=== PATIENT | male | born 1975 | race Hispanic/Latino ===

== ENCOUNTER 2024-07-09 05:07 | Emergency (ER) | payer BC ==
[~2024-07-09] VITALS: Ht 167.6 cm; Wt 81.6 kg
[2024-07-09 05:09] VITALS: TEMP 98.5
[2024-07-09] MEDS: SODIUM CHLORIDE 0.9% 1000ML 1,000 ML IV STA (05:25)
[2024-07-09 05:30] LABS: BASOPHILS % 0.5 % (0.0-1.0); EOSINOPHILS # (AUTO) 0.4 (0.0-0.4); EOSINOPHILS % 4.5 % (0.0-6.0); HEMATOCRIT 43.5 % (38.2-49.6); LYMPHOCYTES # (AUTO) 3.8 (1.0-3.2); MEAN CORPUSCULAR HEMOGLOBIN 31.5 pg (28-32); MEAN CORPUSCULAR HGB CONC 34.5 g/dL (31-35); MEAN CORPUSCULAR VOLUME 91.4 fL (81-99); MONOCYTES # (AUTO) 0.7 (0.2-0.8); MONOCYTES % 8.4 % (4.4-11.3); NEUTROPHILS # (AUTO) 3.2 (2.1-6.9); NEUTROPHILS % 39.5 % (38.7-80.0); PLATELET COUNT 186 x10e3/uL (140-360); RED BLOOD COUNT 4.76 x10e6/uL (4.3-5.7); RED CELL DISTRIBUTION WIDTH 12.5 % (11.7-14.4); WHITE BLOOD COUNT 8.05 x10e3/uL (4.8-10.8)
[2024-07-09] MEDS ORDERED: IOPAMIDOL 370 MG/ML 100 ML INFUS..BTL INJ ONE (05:32)
[2024-07-09] MEDS: FAMOTIDINE 20 MG/2 ML VIAL IV STA (05:46)
[2024-07-09 05:58] LABS: CREATINE KINASE 84 IU/L (30-200)
[2024-07-09 06:10] LABS: TROPONIN I < 0.001 ng/mL (0-0.300)
[2024-07-09 06:22] LABS: ALBUMIN 4.4 g/dL (3.5-5.0); ALBUMIN/GLOBULIN RATIO 1.3 (0.8-2.0); BILIRUBIN,TOTAL 0.6 mg/dL (0.2-1.2); CALCIUM 9.3 mg/dL (8.4-10.2); CREATININE, SERUM 0.93 mg/dL (0.72-1.25); TOTAL PROTEIN 7.7 g/dL (6.5-8.1)
[2024-07-09] MEDS: MAGNESIUM/ALUMINUM/SIMETHICONE 30 ML UDC PO ONE (06:32)
[2024-07-09] MEDS: BELLADONNA ALK/PHENOBARBITAL 5 ML UDC PO STA (06:33)
[2024-07-09] MEDS: LIDOCAINE VISC 2% SOLN 15 ML UDC PO ONE (06:33)
[2024-07-09 06:57] LABS: BILIRUBIN,URINE NEGATIVE (NEGATIVE); CLARITY,URINE CLEAR (CLEAR); COLOR,URINE YELLOW (YELLOW); GLUCOSE, URINE NEGATIVE (NEGATIVE); KETONES,URINE NEGATIVE (NEGATIVE); LEUKOCYTE ESTERASE ,URINE NEGATIVE (NEGATIVE); NITRITE,URINE NEGATIVE (NEGATIVE); PH,URINE 6 (5 - 7); PROTEIN,URINE DIPSTICK NEGATIVE (NEGATIVE); URINE UROBILINOGEN 0.2 mg/dL (0.2 - 1)
[2024-07-09 07:16] LABS: BACTERIA,URINE RARE /HPF; RBC,URINE 0-5 /HPF (0-5); WBC,URINE (MAN) 0-5 /HPF (0-5)
[2024-07-09] MEDS ORDERED: OMEPRAZOLE40 MG PO (07:46)
[2024-07-09] MEDS ORDERED: CARAFATE1 GM PO (07:46)
[2024-07-09] MEDS ORDERED: ONDANSETRON ODT4 MG PO (07:46)
[2024-07-09 09:00] VITALS: PULSE 67; RESP 18
[2024-07-09 10:00] VITALS: BP 139/92; PULSE 67; RESP 16; O2SAT 97
== END 2024-07-09 10:00 | disposition home or self-care (01) ==
LOC: ER 05:12
DX: R10.13 Epigastric pain (principal); K80.20 Calculus of gallbladder without cholecystitis without obstruction; R11.0 Nausea; R16.0 Hepatomegaly, not elsewhere classified; K21.9 Gastro-esophageal reflux disease without esophagitis; F41.9 Anxiety disorder, unspecified
CPT/HCPCS: 36415; 74177; 80053; 81001; 82550; 83690; 84484; 85025; 93005; 99284; J7030; Q9967